=== PATIENT | male | born 1995 | race Two or more races ===

== ENCOUNTER 2018-12-11 00:05 | Emergency (ER) | payer SELFPAY ==
[~2018-12-11] VITALS: Ht 165.1 cm; Wt 89.0 kg
[2018-12-11 00:07] VITALS: BP 119/66
[2018-12-11] MEDS ORDERED: LIDOCAINE-MPF 1%, 5ML INFIL ONE (00:30)
[2018-12-11] MEDS ORDERED: LIDOCAINE-MPF 1%, 5ML ONE (00:30)
== END 2018-12-11 01:50 | disposition left against medical advice (07) ==
LOC: ED 01:00
DX: S01.511A Laceration without foreign body of lip, initial encounter (principal); F10.129 Alcohol abuse with intoxication, unspecified; W18.30XA Fall on same level, unspecified, initial encounter; Y93.01 Activity, walking, marching and hiking; Y92.410 Unspecified street and highway as the place of occurrence of the external cause; Y99.8 Other external cause status
CPT/HCPCS: 12052; 99284